=== PATIENT | female | born 1995 | race African-American/Black ===

== ENCOUNTER 2018-08-22 23:44 | Emergency (ER) | payer MEDICAID ==
[~2018-08-22] VITALS: Ht 165.1 cm; Wt 55.0 kg
[2018-08-23] MEDS ORDERED: BALANCED SALT IRRIG SOLN 15ML IO ONE (01:15)
[2018-08-23] MEDS ORDERED: FLUORESCEIN SODIUM 1MG/STRIP OP ONE (01:15)
[2018-08-23] MEDS ORDERED: TETRACAINE 0.5% OPHTH DROPS 4ML OP ONE (01:15)
[2018-08-23 02:41] VITALS: BP 11/76
[2018-08-23] MEDS ORDERED: ERYTHROMYCIN BASE 0.5% OPHTH OINT 3.5GM RIGHTEYE ONE (02:45)
== END 2018-08-23 03:26 | disposition home or self-care (01) ==
LOC: ER 23:44
DX: S05.01XA Injury of conjunctiva and corneal abrasion without foreign body, right eye, initial encounter (principal); Y93.89 Activity, other specified; W22.8XXA Striking against or struck by other objects, initial encounter; Y92.89 Other specified places as the place of occurrence of the external cause
CPT/HCPCS: 99283

== ENCOUNTER → 2019-09-16 | Emergency (ER) | payer MEDICAID ==
[~2019-09-16] VITALS: Ht 165.1 cm; Wt 56.0 kg
[~2019-09-16] MED LIST: AZITHROMYCIN 500 MG TABLET PO ONE; CEFTRIAXONE SODIUM 250 MG/VIAL IM ONE; LIDOCAINE HCL/PF 1% 10 MG/ML 5ML VIAL IJ ONE
[2019-09-16 04:30] VITALS: BP 102/55
== END ==
LOC: ER 00:12
DX: A64 Unspecified sexually transmitted disease (principal)
CPT/HCPCS: 81025; 96372; 99283; J0696; J3490